=== PATIENT | female | born 1965 | race Caucasian/White ===

== ENCOUNTER 2024-12-29 17:17 | Emergency (ER) | payer MEDICARE ==
[~2024-12-29] VITALS: Ht 162.6 cm; Wt 86.9 kg
[2024-12-29 17:21] VITALS: BP 151/61; PULSE 68; RESP 16; O2SAT 95
[2024-12-29] MEDS ORDERED: TRIA15CR61 TOP (18:05)
[2024-12-29] MEDS: triamcinolone acetonide 40mg/ml inj IM ONE (18:30)
[2024-12-29 18:35] VITALS: TEMP 98
== END 2024-12-29 18:36 | disposition home or self-care (01) ==
LOC: ER 17:18
DX: L23.89 Allergic contact dermatitis due to other agents (principal); Z79.899 Other long term (current) drug therapy
CPT/HCPCS: 96372; 99283; J3301